=== PATIENT | male | born 1945 | race Caucasian/White ===

== ENCOUNTER 2019-02-01 23:58 | Emergency (ER) | payer MEDICARE ==
[~2019-02-01] VITALS: Ht 182.9 cm; Wt 77.1 kg
[2019-02-02 00:28] VITALS: BP 196/114
[2019-02-02] MEDS ORDERED: RANI-348 PO (00:53)
[2019-02-02] MEDS ORDERED: ATOR20TA58 PO (00:54)
[2019-02-02] MEDS ORDERED: ASPI81TA50 PO (00:54)
[2019-02-02] MEDS ORDERED: METO-247 PO (00:55)
[2019-02-02] MEDS ORDERED: LIDOCAINE 1%/EPI 1:100,000 20 ML VIAL. INJ ONE (01:15)
[2019-02-02] MEDS ORDERED: CHLO15MO2 PO (01:32)
--- NOTE | 2019-02-02 01:33 | PHYS DOC ---
Past Medical History Past Medical History: GERD, High Cholesterol Past Surgical History: No Surgical History Alcohol Use: None Drug Use: None Adult General Chief Complaint Chief Complaint: LACERATION/AVULSION HPI HPI Patient is a 73 year old [f__sex] who presents with [] Review of Systems Review of Systems Constitutional: Denies fever or chills Eyes: Denies redness or eye pain HENT: Denies nasal congestion or sore throat Respiratory: Denies cough or shortness of breath Cardiovascular: Denies chest pain or palpitations GI: Denies abdominal pain, nausea, or vomiting : Denies dysuria or hematuria Musculoskeletal: Denies back pain or joint pain Integument: Denies rash or skin lesions Neurologic: Denies headache, focal weakness or sensory changes Complete systems were reviewed and found to be within normal limits, except as documented in this note. Current Medications Current Medications Current Medications Medications (Trade) Dose Ordered Sig/Nadir Start Time Stop Time Status Last Admin Dose Admin Lidocaine/ Epinephrine (LIDOCAINE 1%-EPI 1:100,000 Multi-Dose) 20 ml 1X ONCE 02/02/19 01:15 02/02/19 01:17 DC 02/02/19 01:56 20 ML Allergies Allergies Allergies Coded Allergies Type Severity Reaction Last Updated Verified No Known Drug Allergies 02/02/19 No Physical Exam Physical Exam Constitutional: Well developed, well nourished, no acute distress, non-toxic appearance HENT: Normocephalic, atraumatic, oropharynx moist Eyes: PERRL, EOMI, conjunctiva normal, no discharge Neck: Normal range of motion, no tenderness, supple Cardiovascular: Heart rate normal, regular rhythm Lungs & Thorax: Bilateral breath sounds clear to auscultation, no wheezing Abdomen: Soft, no tenderness Skin: Warm, dry, no erythema, no rash Back: No tenderness, no CVA tenderness Extremities: No tenderness, ROM intact, no edema Neurologic: Alert and oriented X 3, normal motor function, normal sensory function, no focal deficits noted Psychologic: Affect normal, judgement normal, mood normal Current Patient Data Vital Signs Vital Signs Date Time Temp Pulse Resp B/P (MAP) Pulse Ox O2 Delivery O2 Flow Rate FiO2 02/02/19 00:28 98.8 66 20 196/114 (141) 96 Room Air 98.8 EKG EKG [] Radiology/Procedures Radiology/Procedures [] Course & Med Decision Making Course & Med Decision Making Pertinent Labs and Imaging studies reviewed. (See chart for details) Patient stable for discharge with outpatient follow-up with PCP. Discussed findings and plan with patient, who acknowledges understanding and agreement. [employer] Disclaimer Dragon Disclaimer This electronic medical record was generated, in whole or in part, using a voice recognition dictation system. Laceration/Wound Repair Laceration/Wound Repair : Wound Location: mouth (right upper lip mucosal surface) Wound's Depth, Shape: flap Wound Length (cm): 2 Wound Explored: no foreign body removed Irrigated w/ Saline (ccs): 100 Anesthesia: Lidocaine w/ Epi (1%) Volume Anesthetic (ccs): 3 Wound Debrided: minimal Wound Repaired With: sutures Suture Size/Type: 5:0 (Vicryl) Progress Verbal consent obtained. Time out performed. Hand hygiene utilized. Wound cleaned with normal saline. Anesthesia obtained via a 25-gauge hypodermic needle with (3) mL's of lidocaine 1% with epinephrine. Copious irrigation performed. Wound well approximated with interrupted buried 5-0 Vicryl x 3. Patient tolerated procedure well and without difficulty. Departure Departure Impression: Primary Impression: Lip laceration Disposition: HOME, SELF-CARE Condition: STABLE Referrals: ERICK LOPEZ MD (PCP) Patient Instructions: Mouth Laceration, Smve-on-[id number] Additional Instructions: Your sutures are absorbable, you do not need to have them removed. Take over the counter Tylenol and Ibuprofen for pain of discomfort. Scripts Chlorhexidine Gluconate (PERIDEX) 15 Ml Mouthwash 15 ML PO BID, #[id number] ML Prov: FRANCIS CARVAJAL DO 02/02/19 Problem Qualifiers Primary Impression: Lip laceration Encounter type: initial encounter Qualified Codes: S01.511A - Laceration without foreign body of lip, initial encounter FRANCIS CARVAJAL DO Feb 02, 2019 01:33
== END 2019-02-02 01:58 | disposition home or self-care (01) ==
LOC: ER 23:58
DX: S01.511A Laceration without foreign body of lip, initial encounter (principal); K21.9 Gastro-esophageal reflux disease without esophagitis; E78.00 Pure hypercholesterolemia, unspecified; W21.07XA Struck by softball, initial encounter; Y93.89 Activity, other specified; Y92.89 Other specified places as the place of occurrence of the external cause; Y99.8 Other external cause status
CPT/HCPCS: 12011; 99283; J3490